=== PATIENT | male | born 1990 | race Caucasian/White ===

== ENCOUNTER 2018-05-06 14:51 | Emergency (ER) | payer SELFPAY ==
[2018-05-06] MEDS ORDERED: FAMOTIDINE 20 MG TAB PO ONE (15:45)
[2018-05-06] MEDS ORDERED: DEXAMETHASONE 10 MG/ML VIAL IVP ONE (16:04)
[2018-05-06] MEDS ORDERED: NS 1,000 ML IV ONE (16:04)
--- NOTE | 2018-05-06 16:52 | EDPHY ---
General Time Seen by Provider: 05/06/18 16:47 Narrative: CHIEF COMPLAINT: "Reaction to Bactrim" HISTORY OF PRESENT ILLNESS: Patient presents with complaints of reaction to Bactrim medication. He states that he has been on this since April 28 for a wound on the left ankle. He was doing well until approximately 3 days ago when he developed a rash. The rash was 1st on the abdomen and trunk, it has now spread to arms, legs, back. No involvement of the face. No involvement of the palms of the hands or soles of feet. He has no oral lesions or pain of the mouth. No difficulty breathing. No swelling of the mouth, lips or tongue. He has stop the Bactrim for 3 days and has minimal improvement. Tried Benadryl at home with no improvement. No other associated complaints or modifying factors. REVIEW OF SYSTEMS: 10 systems were reviewed and negative with the exception of the elements mentioned in the history of present illness. PCP: [facility] urgent care SPECIALISTS: None PAST MEDICAL HISTORY: Denies any medical history PAST SURGICAL HISTORY: No surgical history SOCIAL HISTORY: Lives and works here independently. FAMILY HISTORY: Noncontributory EXAMINATION: General Appearance: Alert, no distress Head: normocephalic, atraumatic Eyes: Pupils equal and round, no conjunctival pallor or injection ENT, Mouth: Mucous membranes moist. Airway is widely patent. There is no edema of the lips or tongue. There is no desquamation or lesions of the oral mucosa. Neck: Normal inspection, supple, non-tender Respiratory: Lungs are clear to auscultation Cardiovascular: Regular rate and rhythm. No murmur Gastrointestinal: Abdomen is soft and nontender Back: non-tender, no bony abnormalities Neurological: A&O, nonfocal, normal gait Skin: Warm and dry. Multiple tattoos. There is extensive urticaria to the trunk, arms, legs and back. There is no involvement of the palms of the hand. No involved in the soles of the feet. No desquamation. No petechiae. No purpura. Extremities: Nontender, no pedal edema Psychiatric: Mood and affect normal DIFFERENTIAL DIAGNOSES: Including but not limited to acute drug rash, Vince Ko syndrome, urticaria , hives, allergic reaction, anaphylaxis MDM: 4:20 p.m. Acute, urticarial rash systemically without involvement of the palms of the hands or soles of the feet. There is no lesions of the oral mucosa, lips or tongue. I do feel this is likely a Bactrim rash and much less likely Vince Ko syndrome. No evidence of anaphylaxis. He is alert. Acute distress. He has been on the medication for 7 days, offer 3 days now. I have ordered IV medications for this given the systemic location of the rash. His airway is widely patent. He is in no acute distress. 4:50 p.m. Patient re-evaluated. He is feeling significantly better. Airway remains patent. Rash is much improved. We discussed discharge home with ongoing care for the next few days for shoulders reaction. We discussed ED precautions for any lesions of the mouth, swelling of the lips or tongue, difficulty breathing or swallowing, lesions of the palms of the hands or soles of the feet. He is comfortable this plan. Discharged home stable condition. SUPERVISION: This patient was independently evaluated without direct involvement of or examination by the attending physician. CONSULTATION: None - History Smoking Status: Former smoker - Objective Vital Signs: Initial Vital Signs Temperature (C) 97.7 F 05/06/18 14:56 Heart Rate 69 05/06/18 14:56 Respiratory Rate 16 05/06/18 14:56 Blood Pressure 101/72 05/06/18 14:56 O2 Sat (%) 98 05/06/18 14:56 O2 Delivery Mode Room Air Allergies/Adverse Reactions: sulfamethoxazole [From Bactrim] Allergy (Verified 05/06/18 14:55) trimethoprim [From Bactrim] Allergy (Verified 05/06/18 14:55) Home Medications: Medication Instructions Recorded predniSONE [Deltasone] 60 mg PO DAILY #6 tablet 05/06/18 Medications Given: Discontinued Medications Dexamethasone (Decadron Injection) 10 mg IVP EDNOW ONE Stop: 05/06/18 16:05 Last Admin: 05/06/18 16:19 Dose: 10 mg Diphenhydramine HCl (Benadryl Injection) 50 mg IVP EDNOW ONE Stop: 05/06/18 16:05 Last Admin: 05/06/18 16:20 Dose: 50 mg Famotidine (Pepcid) 20 mg PO EDNOW ONE Stop: 05/06/18 15:46 Last Admin: 05/06/18 15:49 Dose: 20 mg Sodium Chloride (Ns) 1,000 mls @ 0 mls/hr IV EDNOW ONE; Wide Open PRN Reason: Protocol Stop: 05/06/18 16:05 Last Admin: 05/06/18 16:18 Dose: 1,000 mls Departure - Departure Disposition: Home, Routine, Self-Care Clinical Impression: Sulfa sensitivity Acute allergic reaction Qualifiers: Encounter type: initial encounter Qualified Code(s): T78.40XA - Allergy, unspecified, initial encounter Condition: Good Instructions: Urticaria (ED), Acute Rash (ED) Additional Instructions: 1. Benadryl 25-50 mg every 6 hr as needed for itching or rash 2. [id number] Zyrtec, 1 pill by mouth once daily for the next 3 days 3. Prednisone as prescribed on Tuesday and Tuesday 4. ED precautions for any worsening of the rash, involvement of the lips, tongue or mouth, involvement of the palms of the hands or soles of the feet Referrals: Alfredo Noriega MD [Medical Doctor] - As per Instructions Physician,Emergency DeptMD [Medical Doctor] - As per Instructions Prescriptions: predniSONE [Deltasone] 60 mg PO DAILY #6 tablet
[2018-05-06 17:10] VITALS: BP 117/82
== END 2018-05-06 17:09 | disposition home or self-care (01) ==
DX: T78.40XA Allergy, unspecified, initial encounter (principal); E86.9 Volume depletion, unspecified
CPT/HCPCS: 96374; J1100; J1200

== ENCOUNTER 2019-02-14 02:02 | Emergency (ER) | payer OTHER, BC | END 2019-02-14 03:28 | disposition home or self-care (01) ==